=== PATIENT | female | born 1995 | race Hispanic/Latino ===

== ENCOUNTER → 2017-06-30 | Outpatient (REF) | payer OTHER | LOC: M SFHCLERA 18:54 | PROVIDERS: ATTEND Physician Assistant | DX: N89.8 Other specified noninflammatory disorders of vagina (principal); R10.9 Unspecified abdominal pain ==

== ENCOUNTER → 2017-12-01 | Outpatient (REF) | payer OTHER | LOC: M SFHCLERA 13:23 | DX: R10.9 Unspecified abdominal pain (principal); Z53.9 Procedure and treatment not carried out, unspecified reason ==

== ENCOUNTER 2019-10-14 10:52 | Emergency (ER) | payer OTHER ==
[~2019-10-14] VITALS: Ht 160 cm; Wt 69.0 kg
[2019-10-14 13:39] VITALS: BP 111/59
== END 2019-10-14 13:35 | disposition home or self-care (01) ==
LOC: M ED 10:52
DX: J06.9 Acute upper respiratory infection, unspecified (principal)